=== PATIENT | female | born 1945 | race Caucasian/White ===

== ENCOUNTER 2019-08-07 07:24 | Inpatient (IN) | payer MEDICARE, BC ==
[~2019-08-07 07:24] MED LIST: Povidone-Iodine 10% Soln 118.25 ML Bottle ONE
[2019-08-07] MEDS ORDERED: Lactated Ringers 1,000 ML IV SCH (08:00)
[2019-08-07] MEDS ORDERED: Midazolam 1 MG/ML 2 ML SDV ONE ×2 (08:06→12:28)
[2019-08-07] MEDS ORDERED: fentaNYL 100 MCG/2 ML SDV ONE ×2 (08:06→13:44)
[2019-08-07] MEDS ORDERED: Propofol 200 MG/20 ML SDV ONE ×4 (08:06→12:20)
[2019-08-07] MEDS: Nozin Nasal Sanitizer NASBOTH SCH ×2 (08:24→21:18)
[2019-08-07] MEDS ORDERED: ceFAZolin 2 GM in Premix Bag 1 BAG IV ONE (09:00)
[2019-08-07] MEDS ORDERED: ePHEDrine 50 MG/ML SDV ONE (10:14)
[2019-08-07] MEDS ORDERED: Phenylephrine 1% 10 MG/ML SDV ONE ×2 (10:24→13:39)
[2019-08-07] MEDS ORDERED: Sodium Chloride 0.9% 10 ML ONE (10:24)
[2019-08-07] MEDS ORDERED: Lactated Ringers 1,000 ML ONE ×2 (10:51→12:33)
--- NOTE | 2019-08-07 12:28 | CR ---
Hip Min 1V Rt: 08/07/2019 11:24 AM INDICATION: POST OP RIGHT TOTAL HIP COMPARISON: Radiograph performed 07/04/2019. FINDINGS/IMPRESSION: Single portable operative spot radiograph demonstrates right total hip arthroplasty in progress. The acetabular component has been placed. Femoral component has not yet been fitted.
[2019-08-07] MEDS ORDERED: Morphine 2 MG/ML Syringe IVPUSH PRN (13:07)
[2019-08-07] MEDS ORDERED: Magnesium Hydroxide 400 MG/5 ML Susp 30 ML Cup PO PRN (13:07)
[2019-08-07] MEDS ORDERED: Acetaminophen/oxyCODONE 325-5 MG Tab PO PRN (13:07)
[2019-08-07] MEDS ORDERED: Ondansetron 4 MG/2 ML SDV IVPUSH PRN (13:17)
[2019-08-07] MEDS ORDERED: Sodium Chloride 0.9% 250 ML ONE (13:39)
[2019-08-07] MEDS: Norepinephrine 4 MG in Dextrose 5% in Water 246 ML IV SCH ×2 (13:54)
[2019-08-07] MEDS: Sodium Chloride 0.9% 1,000 ML IV SCH (15:43)
--- NOTE | 2019-08-07 15:47 | PCM.CONS ---
H&P History of Present Illness - General Date of Service: 08/07/19 Admit Problem/Dx: Admission Diagnosis/Problem Admission Diagnosis/Problem Osteoarthritis of both hips Source of Information: Patient, Provider History Limitations: Reports: No Limitations - History of Present Illness Initial Comments - Free Text/Narative: CC: my hip hurts HPI: I was asked to see Claudia by Dr Lares today after a right MARBELLA complicated by hypotension. Claudia is a healthy female who suffered an acetabular fracture during surgical repair of her severe right hip OA. As a result she lost a significant amount of blood and has been hypotensive requiring vasopressor support. She is currently receiving 2 units of blood via transfusion and is on 7 g of norepinephrine. Mean arterial pressure has finally reached 65 after titration of the vasopressor medication. She is currently reporting severe sharp pain in her right hip following surgery. We have been unable to use pain medications because of the hypotension until now. She does not report any shortness of breath. No complaints of chest pain. No history of cardiac difficulty. Postoperative hemoglobin was 9. Right Hip Pain Score (Numeric/FACES): 4 - Related Data Allergies/Adverse Reactions: Allergies Allergy/AdvReac Type Severity Reaction Status Date / Time Penicillins Allergy Rash Verified 08/07/19 07:57 Home Medications: Home Meds Cyanocobalamin (Vitamin B-12) [Vitamin B-12] 1,000 mcg SL DAILY 07/04/19 [ History] Magnesium 250 mg PO BEDTIME 07/04/19 [History] Potassium Gluconate [Potassium] 600 mg PO DAILY PRN 07/04/19 [History] Cholecalciferol (Vitamin D3) [Vitamin D3] 25 mcg PO DAILY 08/07/19 [History] Past Medical History Gastrointestinal History: Reports: Diverticulosis, GERD Genitourinary History: Reports: UTI, Recurrent [employer] HEL[employer] History: Reports: Fibroids Musculoskeletal History: Reports: Arthritis, Back Pain, Chronic, Other (See Below) Other Musculoskeletal History: bilat hip pain Hematologic History: Reports: Anemia - Infectious Disease History Infectious Disease History: Reports: Chicken Pox - Past Surgical History HEENT Surgical History: Reports: Cataract Surgery, Other (See Below) Other HEENT Surgeries/Procedures: "lump removed from eye" GI Surgical History: Reports: Colonoscopy Female Surgical History: Reports: Hysterectomy Social & Family History - Family History Cardiac: Denies: CAD - Tobacco Use Smoking Status *Q: Former Smoker Used Tobacco, but Quit: Yes Month/Year Tobacco Last Used: 20 yrs ago - Caffeine Use Caffeine Use: Reports: Coffee - Alcohol Use Days Per Week of Alcohol Use: 5 Number of Drinks Per Day: 1 Total Drinks Per Week: 5 - Recreational Drug Use Recreational Drug Use: No H&P Review of Systems - Review of Systems: Review Of Systems: See Below Free Text/Narrative: A complete 12 point review of systems was obtained. Pertinent positives and negatives are noted in the history of present illness. All other systems were reviewed and were negative except as noted. Exam - Exam Exam: See Below - Vital Signs Vital Signs: Last Vital Signs Temp 35.4 C 08/07/19 15:38 Pulse 72 08/07/19 15:38 Resp 6 L 08/07/19 15:38 BP 87/57 L 08/07/19 15:38 Pulse Ox 100 08/07/19 15:38 Weight: 67.313 kg - Exam Quality Assessment: No: Supplemental Oxygen General: Alert, Oriented, Cooperative, Moderate Distress HEENT: No: Mucosa Moist & [place] (dry), Scleral Icterus Neck: Supple, Trachea Midline. No: Lymphadenopathy Lungs: Clear to Auscultation, Normal Respiratory Effort Cardiovascular: Regular Rate, Regular Rhythm GI/Abdominal Exam: Normal Bowel Sounds, Soft, Non-Tender, No Distention Extremities: No Pedal Edema, Other (right hip surgical dressing dry and intact ) . No: Increased Warmth Skin: Warm, Dry Neuro Extensive - Mental Status: Alert, Oriented x3, Nl Response to Commands Neuro Extensive - Motor, Sensory, Reflexes: No: Dysarthria, Abnormal Motor, Tremor Psychiatric: Alert, Normal Affect - Patient Data Lab Results Last 24 hrs: Laboratory Results - last 24 hr 08/07/19 08/07/19 Range/Units 07:52 13:07 WBC 12.1 H (4.5-11.0) K/uL RBC 3.15 L (3.30-5.50) M/uL Hgb 9.4 L (12.0-15.0) g/dL Hct 28.6 L (36.0-48.0) % MCV 91 (80-98) fL MCH 30 (27-31) pg MCHC 33 (32-36) % Plt Count 209 (150-400) K/uL Blood Type O POSITIVE Gel Antibody Screen Negative Crossmatch See Detail Result Diagrams: 08/07/19 13:07 Imaging Impressions Last 24 hrs: Pelvis x-ray - this image was personally reviewed - right MARBELLA components are in place and appear to be in good alignment Consult PN Assessment/Plan POD#: 0 Procedures: Procedures X-RAY EXAM HIPS BI 2 VIEWS (07/04/19) X-RAY EXAM OF PELVIS (07/04/19) (1) Anemia due to blood loss, acute SNOMED Code(s): 138953629 Code(s): D62 - ACUTE POSTHEMORRHAGIC ANEMIA Current Visit: Yes Problem List Initiated/Reviewed/Updated: Yes My Orders Last 24 Hours: My Active Orders 08/07/19 21:00 HGB [HEMOGLOBIN] [HEME] Timed Plan: ASSESSMENT AND PLAN - Severe right hip osteoarthritis - she is now status post right total hip arthroplasty. Postop course has been complicated by hypotension and anemia due to blood loss. She is requiring vasopressor support at this time but blood pressures have been improving. She is currently receiving 2 units of blood via transfusion as well as IV fluids. -Complete current blood transfusion -Repeat hemoglobin in a few hours and in the morning -Type and cross for 4 additional units in case they are needed -Pain control -Additional postoperative care per the orthopedic team Patient has been admitted to the intensive care unit for management of her severe hypotension Darrel Rao M.D. Requesting Provider: Dr Lares Date Consult Requested: 08/07/19 Reason for Consult: hypotension Patient History Reviewed: Yes Admission H&P Reviewed: Yes Notified Requestor: No Time Spent (in minutes): 60
--- NOTE | 2019-08-07 16:19 | CR ---
Pelvis 1V or 2V: 08/07/2019 1:28 PM INDICATION: post op right total hip COMPARISON: 07/04/2019. FINDINGS/IMPRESSION: Changes of right total hip arthroplasty are present without apparent hardware complication or periprosthetic fracture. Expected postsurgical changes are present in the soft tissues, with subcutaneous emphysema noted. Moderate osteoarthritis of the left hip, SI joints, and pubic symphysis.
[2019-08-07] MEDS: Acetaminophen/HYDROcodone 325-5 MG Tab PO PRN (16:57)
[2019-08-07] MEDS ORDERED: Magnesium Sulfate/Water 2 GM in Premix Bag 1 BAG IV ONE (18:39)
[2019-08-07] MEDS: Magnesium Oxide 400 MG Tab PO SCH (21:20)
[2019-08-08] MEDS: Norepinephrine 4 MG in Dextrose 5% in Water 246 ML IV SCH ×2 (03:39)
--- NOTE | 2019-08-08 04:33 | OR ---
DATE OF PROCEDURE: 08/07/2019 SURGEON: Juvencio Lares MD PREOPERATIVE DIAGNOSIS: End-stage osteoarthritis, right hip. POSTOPERATIVE DIAGNOSES: 1. End-stage osteoarthritis, right hip. 2. Fracture medial wall acetabulum. PROCEDURE: Right total hip arthroplasty. ANESTHESIA: Spinal with sedation. INDICATIONS: Ms. Hopkins is a 74-year-old female with history of progressive pain in her right hip for the past several years have been getting progressively more limiting with activities of daily living. Range of motion is extremely limited with minimal internal and external rotation. She now presents for right total hip arthroplasty. Risks, benefits, potential complications of the procedure were discussed. PROCEDURE IN DETAIL: After adequate anesthesia was obtained, patient was placed in the lateral decubitus position and secured with the hip positioner. The right hip and leg were then prepped and draped in a sterile fashion. A longitudinal incision was made over the lateral aspect of the hip and carried down through the subcutaneous tissues. Hemostasis was obtained with electrocautery. Tensor fascia and IT band were split over the greater trochanter and a Charnley retractor was placed. A minimal internal external rotation was present. The short external rotators were taken off the greater trochanter posteriorly and the capsule was then divided in a T-fashion. This allowed rotation of the hip and the femoral head was then dislocated from the acetabulum. This showed significant end-stage osteoarthritis with deformity of the head. Retractors were placed about the anterior and inferior aspect of the acetabulum. Soft tissues were cleared from the central portion of the acetabulum and the labrum was excised. A portion of the labrum was calcified. A stab wound was then sequentially reamed to good subchondral bone. A Janna Continuum trabecular metal cup was press-fit into place. This initially had good fixation. However , when the liner was tapped into position, the cup was noted to have lost position. The cup was removed and it was discovered that the medial wall of the acetabulum had fractured allowing the cup to displace into a protrusio position. The acetabulum was then reamed up slightly to a good rim contact. Larger cup was then selected. Reamings from the acetabulum were placed in the central portion against the medial wall and the cup was then again press-fit into place. This again showed good initial purchase. Two screws were placed into the acetabulum. Unfortunately, when the polyethylene liner was tapped into position, the cup was again noted to have lost fixation. This cup was removed as well. The graft that had been placed was removed and preserved. Acetabulum was then reamed up to a 60 mm and a 62 mm cup was utilized. This was tapped into position after placing a bone graft again against the medial wall. Two acetabular screws were placed with very good purchase. Acetabular liner was then tapped in and there was no displacement of the cup with this. Attention was then returned to the femur. Due to concern about the density of the calcar and metaphyseal bone a stem was selected that allowed for distal fixation. The canal was reamed with a hand awl. This was then reamed up to a 15 mm diameter reamer. A trial Baeza 15 mm stem was placed. This subsided below the level of the tip of the trochanter for femoral head rotation and it was removed. A 16 mm body was then utilized, which provided much better fixation and allowed placement of the center rotation at the level of the greater trochanter. This was trialed and found to have restored limb length. The trial was removed. The final Baeza 16 mm stem was then press-fit into position, had excellent purchase and rotational stability. The femoral neck lengths were then trialed once again with a plus 3.5 mm neck length on a 36 mm diameter head was selected. The trial was removed. The trunnion was cleaned and the final femoral head was tapped into position. The hip was reduced a final time. Care was taken with each of the reductions to be sure that the cup maintained position and fixation. On final trial, the limb length was restored, showed stability in flexion to 90 degrees, abduction to 20 degrees, and internal rotation at least to 45 degrees. The hip was then irrigated. Pulse lavage irrigation was followed by irrigation with a dilute Betadine solution, which was left in place for 2 minutes. This was then irrigated once again. The short external rotators were reattached to the greater trochanter with #2 Ethibond. Tensor fascia was closed with #2 Ethibond in a running locking fashion. Skin was closed with 2-0 Vicryl and a running 3-0 Monocryl. Steri-Strips were applied. Sterile dressing was then placed. The patient tolerated the procedure well. Due to the medial wall fracture, there was significant blood loss estimated at 1500 mL. Hemoglobin and hematocrit will be checked postoperatively and postoperative x-ray will also be obtained in the recovery room. Juvencio Lares MD /[id number] MTDD
[2019-08-08] MEDS: Sodium Chloride 0.9% 1,000 ML IV SCH (05:54)
[2019-08-08] MEDS: Cyanocobalamin (Vitamin B12) 1,000 MCG Tab SL SCH (08:13)
[2019-08-08] MEDS: Nozin Nasal Sanitizer NASBOTH SCH ×2 (08:14→20:54)
[2019-08-08] MEDS: Enoxaparin 30 MG/0.3 ML Syringe SUBCUT SCH (08:14)
[2019-08-08] MEDS: Docusate Sodium 100 MG Cap PO PRN ×2 (08:14→20:54)
[2019-08-08] MEDS: Cholecalciferol (Vitamin D3) 25 MCG Tab PO SCH (08:14)
[2019-08-08] MEDS: Acetaminophen/HYDROcodone 325-5 MG Tab PO PRN ×2 (08:28→13:24)
--- NOTE | 2019-08-08 09:23 | PCM.CONSN ---
- General Info Date of Service: 08/08/19 Subjective Update: No acute events overnight. Norepi down to 2 mcg this am. Minimal hip pain at rest, moderate to severe pain with movement. No shortness of breath. Doing well with IS. No abdominal pain or nausea. Hgb has been stable. Functional Status: Reports: Pain Controlled, Tolerating Diet - Review of Systems General: Denies: Fever Musculoskeletal: Reports: Leg Pain - Patient Data Vitals - Most Recent: Last Vital Signs Temp 36.8 C 08/08/19 07:54 Pulse 87 08/08/19 08:54 Resp 15 08/08/19 08:54 BP 100/49 L 08/08/19 08:54 Pulse Ox 97 08/08/19 08:54 Weight - Most Recent: 74.2 kg I&O - Last 24 Hours: Intake & Output 08/07/19 08/08/19 08/08/19 22:59 06:59 14:59 Intake Total 1298 1636 240 Output Total 75 270 185 Balance 1223 1366 55 Lab Results Last 24 Hours: Laboratory Results - last 24 hr 08/07/19 08/07/19 08/07/19 Range/Units 07:52 13:07 18:13 WBC 12.1 H (4.5-11.0) K/uL RBC 3.15 L (3.30-5.50) M/uL Hgb 9.4 L (12.0-15.0) g/dL Hct 28.6 L (36.0-48.0) % MCV 91 (80-98) fL MCH 30 (27-31) pg MCHC 33 (32-36) % Plt Count 209 (150-400) K/uL Neut % (Auto) (36-66) % Lymph % (Auto) (24-44) % [place] % (Auto) (2-6) % Eos % (Auto) (2-4) % Baso % (Auto) (0-1) % Sodium 139 L (140-148) mmol/L Potassium 4.1 (3.6-5.2) mmol/L Chloride 105 (100-108) mmol/L Carbon Dioxide 26 (21-32) mmol/L Anion Gap 12.1 (5.0-14.0) mmol/L BUN 18 (7-18) mg/dL Creatinine 0.7 (0.6-1.0) mg/dL Est Cr Clr Drug Dosing TNP Estimated GFR (MDRD) > 60 (>60) Glucose 172 H (74-106) mg/dL Calcium 8.1 L (8.5-10.1) mg/dL Magnesium 1.7 L (1.8-2.4) mg/dL Blood Type O POSITIVE Gel Antibody Screen Negative Crossmatch See Detail 08/07/19 08/08/19 08/08/19 Range/Units 21:00 04:05 04:05 WBC 6.8 (4.5-11.0) K/uL RBC 3.34 (3.30-5.50) M/uL Hgb 11.2 L 10.0 L (12.0-15.0) g/dL Hct 29.6 L (36.0-48.0) % MCV 89 (80-98) fL MCH 30 (27-31) pg MCHC 34 (32-36) % Plt Count 164 (150-400) K/uL Neut % (Auto) 79 H (36-66) % Lymph % (Auto) 9 L (24-44) % [place] % (Auto) 12 H (2-6) % Eos % (Auto) 0 L (2-4) % Baso % (Auto) 0 (0-1) % Sodium 138 L (140-148) mmol/L Potassium 4.8 (3.6-5.2) mmol/L Chloride 105 (100-108) mmol/L Carbon Dioxide 26 (21-32) mmol/L Anion Gap 11.8 (5.0-14.0) mmol/L BUN 17 (7-18) mg/dL Creatinine 0.6 (0.6-1.0) mg/dL Est Cr Clr Drug Dosing TNP Estimated GFR (MDRD) > 60 (>60) Glucose 151 H (74-106) mg/dL Calcium 7.6 L (8.5-10.1) mg/dL Magnesium (1.8-2.4) mg/dL Blood Type Gel Antibody Screen Crossmatch Med Orders - Current: Current Medications Hydrocodone Bitart/Acetaminophen ([place] 325-5 Mg) 1 tab PO Q3H PRN PRN Reason: Pain Last Admin: 08/08/19 08:28 Dose: 1 tab Bandage/Support Products ( Nasal Car Runner) 1 applic NASBOTH BID ON LICENSE OF [facility] Last Admin: 08/08/19 08:14 Dose: 1 applic Cholecalciferol (Vitamin D3) 25 mcg PO DAILY ON LICENSE OF [facility] Last Admin: 08/08/19 08:14 Dose: 25 mcg Cyanocobalamin (Vitamin B12) 1,000 mcg SL DAILY ON LICENSE OF [facility] Last Admin: 08/08/19 08:13 Dose: 1,000 mcg Docusate Sodium (Colace) 100 mg PO BID PRN PRN Reason: Constipation Last Admin: 08/08/19 08:14 Dose: 100 mg Enoxaparin Sodium (Lovenox) 30 mg SUBCUT DAILY ON LICENSE OF [facility] Last Admin: 08/08/19 08:14 Dose: 30 mg Norepinephrine Bitartrate 4 mg (/ Dextrose/Water) 250 mls @ 7.5 mls/hr IV TITRATE ON LICENSE OF [facility]; Protocol Last Titration: 08/08/19 08:03 Dose: 2 mcg/min, 7.5 mls/hr Magnesium Hydroxide (Milk Of Magnesia) 30 ml PO BID PRN PRN Reason: Constipation Magnesium Oxide (Magnesium Oxide) 400 mg PO BEDTIME ON LICENSE OF [facility] Last Admin: 08/07/19 21:20 Dose: 400 mg Morphine Sulfate (Morphine) 2 mg IVPUSH Q1H PRN PRN Reason: Breakthrough Pain Last Admin: 08/07/19 15:37 Dose: 2 mg Ondansetron HCl (Zofran) 4 mg IVPUSH Q6H PRN PRN Reason: Nausea/Vomiting Oxycodone/Acetaminophen (Percocet 325-5 Mg) 2 tab PO Q4H PRN PRN Reason: Pain (severe 7-10) Discontinued Medications Ephedrine Sulfate (Ephedrine Sulfate) Confirm Administered Dose 50 mg .ROUTE .STK-MED ONE Stop: 08/07/19 10:15 Fentanyl (Sublimaze) Confirm Administered Dose 100 mcg .ROUTE .STK-MED ONE Stop: 08/07/19 08:07 Fentanyl (Sublimaze) Confirm Administered Dose 100 mcg .ROUTE .STK-MED ONE Stop: 08/07/19 13:45 Lactated Ringer's (Ringers, Lactated) 1,000 mls @ 75 mls/hr IV ASDIRECTED ON LICENSE OF [facility] Last Admin: 08/07/19 08:30 Dose: 75 mls/hr Cefazolin Sodium/Dextrose 2 gm (/ Premix) 50 mls @ 100 mls/hr IV ONETIME ONE Stop: 08/07/19 09:29 Last Admin: 08/07/19 09:49 Dose: 100 mls/hr Sodium Chloride (Normal Saline) Confirm Administered Dose 10 mls @ as directed .ROUTE .ST-MED ONE Stop: 08/07/19 10:25 Lactated Ringer's (Ringers, Lactated) Confirm Administered Dose 1,000 mls @ as directed .ROUTE .ST-MED ONE Stop: 08/07/19 10:52 Lactated Ringer's (Ringers, Lactated) Confirm Administered Dose 1,000 mls @ as directed .ROUTE .ST-MED ONE Stop: 08/07/19 12:34 Sodium Chloride (Normal Saline) 1,000 mls @ 125 mls/hr IV ASDIRECTED ON LICENSE OF [facility] Last Admin: 08/08/19 05:54 Dose: 125 mls/hr Vancomycin HCl 1 gm/ Sodium (Chloride) 250 mls @ 250 mls/hr IV Q12H OLYA Stop: 08/08/19 04:59 Last Admin: 08/08/19 03:41 Dose: 250 mls/hr Sodium Chloride (Normal Saline) Confirm Administered Dose 250 mls @ as directed .ROUTE .ST-MED ONE Stop: 08/07/19 13:40 Magnesium Sulfate 2 gm/ Premix 50 mls @ 12.5 mls/hr IV ONETIME ONE Stop: 08/07/19 22:38 Last Admin: 08/07/19 19:17 Dose: 12.5 mls/hr Midazolam HCl (Versed 1 Mg/Ml) Confirm Administered Dose 2 mg .ROUTE .ST-MED ONE Stop: 08/07/19 08:07 Midazolam HCl (Versed 1 Mg/Ml) Confirm Administered Dose 2 mg .ROUTE .ST-MED ONE Stop: 08/07/19 12:29 Phenylephrine HCl (Sam-Synephrine) Confirm Administered Dose 10 mg .ROUTE .STK- MED ONE Stop: 08/07/19 10:25 Phenylephrine HCl (Sam-Synephrine) Confirm Administered Dose 10 mg .ROUTE .STK- MED ONE Stop: 08/07/19 13:40 Povidone Iodine (Betadine 10% Soln) Confirm Administered Dose 1 ml .ROUTE .STK- MED ONE Stop: 08/07/19 06:41 Propofol (Diprivan 20 Ml) Confirm Administered Dose 200 mg .ROUTE .STK-MED ONE Stop: 08/07/19 08:07 Propofol (Diprivan 20 Ml) Confirm Administered Dose 200 mg .ROUTE .STK-MED ONE Stop: 08/07/19 10:45 Propofol (Diprivan 20 Ml) Confirm Administered Dose 200 mg .ROUTE .STK-MED ONE Stop: 08/07/19 11:41 Propofol (Diprivan 20 Ml) Confirm Administered Dose 200 mg .ROUTE .STK-MED ONE Stop: 08/07/19 12:21 - Exam Quality Assessment: No: Supplemental Oxygen General: Alert, Oriented, Cooperative, No Acute Distress Lungs: Normal Respiratory Effort Cardiovascular: Regular Rate, Regular Rhythm GI/Abdominal Exam: Soft, No Distention Extremities: No Pedal Edema Psy/Mental Status: Alert, Normal Affect Consult PN Assessment/Plan POD#: 1 Procedures: Procedures X-RAY EXAM HIPS BI 2 VIEWS (07/04/19) X-RAY EXAM OF PELVIS (07/04/19) (1) Anemia due to blood loss, acute SNOMED Code(s): 859494094 Code(s): D62 - ACUTE POSTHEMORRHAGIC ANEMIA Current Visit: Yes Problem List Initiated/Reviewed/Updated: Yes My Orders Last 24 Hours: My Active Orders 08/08/19 09:30 Sodium Chloride 0.9% [Normal Saline] 1,000 ml IV ASDIRECTED 08/09/19 05:00 BASIC METABOLIC PANEL,BMP [CHEM] Timed CBC W/O DIFF,HEMOGRAM [HEME] Timed (1) Plan: ASSESSMENT AND PLAN - Severe right hip osteoarthritis - she is now status post right total hip arthroplasty. Postop course has been complicated by hypotension and anemia due to blood loss. She is requiring vasopressor support but it is minimal at this time. Hgb stable since surgery. Pain controlled. -cont norepi, wean as able -Repeat hemoglobin in the morning -Type and cross for 4 additional units in case they are needed -Pain control -Additional postoperative care per the orthopedic team Anemia due to blood loss - more stable today. Hgb stable. No evidence for ongoing bleeding. -hgb in the am Darrel Rao M.D.
[2019-08-08] MEDS ORDERED: Sodium Chloride 0.9% 1,000 ML IV SCH (09:30)
[2019-08-08] MEDS ORDERED: Magnesium Sulfate/Water 2 GM in Premix Bag 1 BAG IV ONE (17:00)
[2019-08-08] MEDS: Magnesium Oxide 400 MG Tab PO SCH (20:54)
[2019-08-09] MEDS: Nozin Nasal Sanitizer NASBOTH SCH ×2 (08:31→20:21)
[2019-08-09] MEDS: Cholecalciferol (Vitamin D3) 25 MCG Tab PO SCH (08:31)
[2019-08-09] MEDS: Cyanocobalamin (Vitamin B12) 1,000 MCG Tab SL SCH (08:31)
[2019-08-09] MEDS ORDERED: traMADol 50 MG Tab PO PRN (08:42)
--- NOTE | 2019-08-09 08:43 | PCM.CONSN ---
- General Info Date of Service: 08/09/19 Subjective Update: There were no acute events overnight. She did require norepinephrine for a short while yesterday but is off again this morning. Blood pressure is back to baseline. She has not been out of bed yet to see if she drops with activity. She has not had any fevers. She does not complain of shortness of breath. She has minimal if any pain in the hip. Hemoglobin is down to 8.1 today. Functional Status: Reports: Pain Controlled, Tolerating Diet - Review of Systems General: Denies: Fever - Patient Data Vitals - Most Recent: Last Vital Signs Temp 37.6 C 08/09/19 06:00 Pulse 87 08/09/19 08:00 Resp 16 08/09/19 08:00 BP 99/56 L 08/09/19 08:00 Pulse Ox 97 08/09/19 08:00 Weight - Most Recent: 74.2 kg I&O - Last 24 Hours: Intake & Output 08/08/19 08/09/19 08/09/19 22:59 06:59 14:59 Intake Total 1277 940 Output Total 100 500 15 Balance 1177 440 -15 Lab Results Last 24 Hours: Laboratory Results - last 24 hr 08/09/19 08/09/19 Range/Units 04:15 04:15 WBC 7.5 (4.5-11.0) K/uL RBC 2.74 L (3.30-5.50) M/uL Hgb 8.1 L (12.0-15.0) g/dL Hct 24.6 L (36.0-48.0) % MCV 90 (80-98) fL MCH 30 (27-31) pg MCHC 33 (32-36) % Plt Count 119 L (150-400) K/uL Sodium 139 L (140-148) mmol/L Potassium 4.1 (3.6-5.2) mmol/L Chloride 106 (100-108) mmol/L Carbon Dioxide 27 (21-32) mmol/L Anion Gap 10.1 (5.0-14.0) mmol/L BUN 12 (7-18) mg/dL Creatinine 0.6 (0.6-1.0) mg/dL Est Cr Clr Drug Dosing 77.41 mL/min Estimated GFR (MDRD) > 60 (>60) Glucose 114 H (74-106) mg/dL Calcium 7.7 L (8.5-10.1) mg/dL Med Orders - Current: Current Medications Hydrocodone Bitart/Acetaminophen ([place] 325-5 Mg) 1 tab PO Q3H PRN PRN Reason: Pain (moderate 4-6) Last Admin: 08/08/19 13:24 Dose: 1 tab Bandage/Support Products ( Nasal Displayer) 1 applic NASBOTH BID [facility] Last Admin: 08/09/19 08:31 Dose: 1 applic Cholecalciferol (Vitamin D3) 25 mcg PO DAILY [facility] Last Admin: 08/09/19 08:31 Dose: 25 mcg Cyanocobalamin (Vitamin B12) 1,000 mcg SL DAILY [facility] Last Admin: 08/09/19 08:31 Dose: 1,000 mcg Docusate Sodium (Colace) 100 mg PO BID PRN PRN Reason: Constipation Last Admin: 08/08/19 20:54 Dose: 100 mg Enoxaparin Sodium (Lovenox) 30 mg SUBCUT DAILY [facility] Last Admin: 08/08/19 08:14 Dose: 30 mg Norepinephrine Bitartrate 4 mg (/ Dextrose/Water) 250 mls @ 7.5 mls/hr IV TITRATE [facility]; Protocol Last Titration: 08/08/19 11:18 Dose: 0 mcg/min, 0 mls/hr Sodium Chloride (Normal Saline) 1,000 mls @ 50 mls/hr IV ASDIRECTED [facility] Magnesium Hydroxide (Milk Of Magnesia) 30 ml PO BID PRN PRN Reason: Constipation Magnesium Oxide (Magnesium Oxide) 400 mg PO BEDTIME [facility] Last Admin: 08/08/19 20:54 Dose: 400 mg Morphine Sulfate (Morphine) 2 mg IVPUSH Q1H PRN PRN Reason: Breakthrough Pain Last Admin: 08/07/19 15:37 Dose: 2 mg Ondansetron HCl (Zofran) 4 mg IVPUSH Q6H PRN PRN Reason: Nausea/Vomiting Tramadol HCl (Ultram) 50 mg PO Q4H PRN PRN Reason: Pain (mild 1-3) Discontinued Medications Ephedrine Sulfate (Ephedrine Sulfate) Confirm Administered Dose 50 mg .ROUTE .STK-MED ONE Stop: 08/07/19 10:15 Fentanyl (Sublimaze) Confirm Administered Dose 100 mcg .ROUTE .STK-MED ONE Stop: 08/07/19 08:07 Fentanyl (Sublimaze) Confirm Administered Dose 100 mcg .ROUTE .K-MED ONE Stop: 08/07/19 13:45 Lactated Ringer's (Ringers, Lactated) 1,000 mls @ 75 mls/hr IV ASDIRECTED [facility] Last Admin: 08/07/19 08:30 Dose: 75 mls/hr Cefazolin Sodium/Dextrose 2 gm (/ Premix) 50 mls @ 100 mls/hr IV ONETIME ONE Stop: 08/07/19 09:29 Last Admin: 08/07/19 09:49 Dose: 100 mls/hr Sodium Chloride (Normal Saline) Confirm Administered Dose 10 mls @ as directed .ROUTE .[facility]-MED ONE Stop: 08/07/19 10:25 Lactated Ringer's (Ringers, Lactated) Confirm Administered Dose 1,000 mls @ as directed .ROUTE .[facility]-MED ONE Stop: 08/07/19 10:52 Lactated Ringer's (Ringers, Lactated) Confirm Administered Dose 1,000 mls @ as directed .ROUTE .[facility]-MED ONE Stop: 08/07/19 12:34 Sodium Chloride (Normal Saline) 1,000 mls @ 125 mls/hr IV ASDIRECTED [facility] Last Admin: 08/08/19 05:54 Dose: 125 mls/hr Vancomycin HCl 1 gm/ Sodium (Chloride) 250 mls @ 250 mls/hr IV Q12H [facility] Stop: 08/08/19 04:59 Last Admin: 08/08/19 03:41 Dose: 250 mls/hr Sodium Chloride (Normal Saline) Confirm Administered Dose 250 mls @ as directed .ROUTE .[facility]-MED ONE Stop: 08/07/19 13:40 Magnesium Sulfate 2 gm/ Premix 50 mls @ 12.5 mls/hr IV ONETIME ONE Stop: 08/07/19 22:38 Last Admin: 08/07/19 19:17 Dose: 12.5 mls/hr Magnesium Sulfate 2 gm/ Premix 50 mls @ 12.5 mls/hr IV ONETIME ONE Stop: 08/08/19 20:59 Last Admin: 08/08/19 17:02 Dose: 12.5 mls/hr Midazolam HCl (Versed 1 Mg/Ml) Confirm Administered Dose 2 mg .ROUTE .STK-MED ONE Stop: 08/07/19 08:07 Midazolam HCl (Versed 1 Mg/Ml) Confirm Administered Dose 2 mg .ROUTE .STK-MED ONE Stop: 08/07/19 12:29 Oxycodone/Acetaminophen (Percocet 325-5 Mg) 2 tab PO Q4H PRN PRN Reason: Pain (severe 7-10) Phenylephrine HCl (Sam-Synephrine) Confirm Administered Dose 10 mg .ROUTE .STK- MED ONE Stop: 08/07/19 10:25 Phenylephrine HCl (Sam-Synephrine) Confirm Administered Dose 10 mg .ROUTE .STK- MED ONE Stop: 08/07/19 13:40 Povidone Iodine (Betadine 10% Soln) Confirm Administered Dose 1 ml .ROUTE .STK- MED ONE Stop: 08/07/19 06:41 Propofol (Diprivan 20 Ml) Confirm Administered Dose 200 mg .ROUTE .STK-MED ONE Stop: 08/07/19 08:07 Propofol (Diprivan 20 Ml) Confirm Administered Dose 200 mg .ROUTE .STK-MED ONE Stop: 08/07/19 10:45 Propofol (Diprivan 20 Ml) Confirm Administered Dose 200 mg .ROUTE .STK-MED ONE Stop: 08/07/19 11:41 Propofol (Diprivan 20 Ml) Confirm Administered Dose 200 mg .ROUTE .STK-MED ONE Stop: 08/07/19 12:21 - Exam Quality Assessment: No: Supplemental Oxygen General: Alert, Oriented, Cooperative, No Acute Distress Lungs: Clear to Auscultation, Normal Respiratory Effort Cardiovascular: Regular Rate, Regular Rhythm GI/Abdominal Exam: Normal Bowel Sounds, Soft, No Distention Extremities: No Pedal Edema. No: Increased Warmth Psy/Mental Status: Alert, Normal Affect Consult PN Assessment/Plan POD#: 2 Procedures: Procedures X-RAY EXAM HIPS BI 2 VIEWS (07/04/19) X-RAY EXAM OF PELVIS (07/04/19) (1) Anemia due to blood loss, acute SNOMED Code(s): 936929474 Code(s): D62 - ACUTE POSTHEMORRHAGIC ANEMIA Current Visit: Yes Problem List Initiated/Reviewed/Updated: Yes My Orders Last 24 Hours: My Active Orders 08/08/19 09:30 Sodium Chloride 0.9% [Normal Saline] 1,000 ml IV ASDIRECTED 10/09/19 08:42 traMADol [Ultram] 50 mg PO Q4H PRN 08/10/19 05:00 CBC W/O DIFF,HEMOGRAM [HEME] Timed (1) Plan: ASSESSMENT AND PLAN - Severe right hip osteoarthritis - she is now status post right total hip arthroplasty. Postop course has been complicated by hypotension and anemia due to blood loss. She is off vasopressors again this morning and blood pressure seems to be back to baseline but she has not been out of bed yet. -cont norepi, wean as able -Repeat hemoglobin in the morning -Consider dense fusion if she remains hypotensive/symptomatic when trying to get out of bed -Pain control -Additional postoperative care per the orthopedic team Anemia due to blood loss - more stable today. Hgb down to 8.1 today. Enoxaparin is on hold. -hgb in the am Darrel Rao M.D.
[2019-08-09] MEDS: Magnesium Oxide 400 MG Tab PO SCH (20:24)
[2019-08-09] MEDS: Docusate Sodium 100 MG Cap PO PRN (20:34)
[2019-08-10] MEDS: Nozin Nasal Sanitizer NASBOTH SCH ×2 (08:39→20:04)
[2019-08-10] MEDS: Enoxaparin 30 MG/0.3 ML Syringe SUBCUT SCH (08:42)
[2019-08-10] MEDS: Cyanocobalamin (Vitamin B12) 1,000 MCG Tab SL SCH (08:43)
[2019-08-10] MEDS: Cholecalciferol (Vitamin D3) 25 MCG Tab PO SCH (08:44)
--- NOTE | 2019-08-10 13:45 | PCM.CONSN ---
- General Info Date of Service: 08/10/19 Subjective Update: No acute events overnight. Pain well-controlled. No fevers. Blood pressure has been stable with no drops. Hemoglobin slightly lower today but no evidence for ongoing bleeding. Patient feels well. Functional Status: Reports: Pain Controlled, Tolerating Diet, Ambulating - Patient Data Vitals - Most Recent: Last Vital Signs Temp 37.2 C 08/10/19 12:00 Pulse 91 08/10/19 12:00 Resp 16 08/10/19 12:00 BP 129/60 08/10/19 12:00 Pulse Ox 97 08/10/19 12:00 Weight - Most Recent: 74.2 kg I&O - Last 24 Hours: Intake & Output 08/09/19 08/10/19 08/10/19 22:59 06:59 14:59 Intake Total 240 587 Output Total 315 450 Balance -75 -450 587 Lab Results Last 24 Hours: Laboratory Results - last 24 hr 08/10/19 Range/Units 04:53 WBC 7.1 (4.5-11.0) K/uL RBC 2.57 L (3.30-5.50) M/uL Hgb 7.6 L (12.0-15.0) g/dL Hct 23.6 L (36.0-48.0) % MCV 92 (80-98) fL MCH 30 (27-31) pg MCHC 32 (32-36) % Plt Count 121 L (150-400) K/uL Med Orders - Current: Current Medications Hydrocodone Bitart/Acetaminophen ([place] 325-5 Mg) 1 tab PO Q3H PRN PRN Reason: Pain (moderate 4-6) Last Admin: 08/08/19 13:24 Dose: 1 tab Bandage/Support Products ( Nasal Electrical And Instrument Engineer) 1 applic NASBOTH BID [facility] Last Admin: 08/10/19 08:39 Dose: 1 applic Cholecalciferol (Vitamin D3) 25 mcg PO DAILY [facility] Last Admin: 08/10/19 08:44 Dose: 25 mcg Cyanocobalamin (Vitamin B12) 1,000 mcg SL DAILY [facility] Last Admin: 08/10/19 08:43 Dose: 1,000 mcg Docusate Sodium (Colace) 100 mg PO BID PRN PRN Reason: Constipation Last Admin: 08/09/19 20:34 Dose: 100 mg Enoxaparin Sodium (Lovenox) 30 mg SUBCUT DAILY [facility] Last Admin: 08/10/19 08:42 Dose: 30 mg Ferrous Sulfate (Ferrous Sulfate) 325 mg PO BIDMEALS [facility] Magnesium Hydroxide (Milk Of Magnesia) 30 ml PO BID PRN PRN Reason: Constipation Magnesium Oxide (Magnesium Oxide) 400 mg PO BEDTIME [facility] Last Admin: 08/09/19 20:24 Dose: 400 mg Morphine Sulfate (Morphine) 2 mg IVPUSH Q1H PRN PRN Reason: Breakthrough Pain Last Admin: 08/07/19 15:37 Dose: 2 mg Ondansetron HCl (Zofran) 4 mg IVPUSH Q6H PRN PRN Reason: Nausea/Vomiting Tramadol HCl (Ultram) 50 mg PO Q4H PRN PRN Reason: Pain (mild 1-3) Discontinued Medications Ephedrine Sulfate (Ephedrine Sulfate) Confirm Administered Dose 50 mg .ROUTE .STK-MED ONE Stop: 08/07/19 10:15 Fentanyl (Sublimaze) Confirm Administered Dose 100 mcg .ROUTE .STK-MED ONE Stop: 08/07/19 08:07 Fentanyl (Sublimaze) Confirm Administered Dose 100 mcg .ROUTE .STK-MED ONE Stop: 08/07/19 13:45 Lactated Ringer's (Ringers, Lactated) 1,000 mls @ 75 mls/hr IV ASDIRECTED [facility] Last Admin: 08/07/19 08:30 Dose: 75 mls/hr Cefazolin Sodium/Dextrose 2 gm (/ Premix) 50 mls @ 100 mls/hr IV ONETIME ONE Stop: 08/07/19 09:29 Last Admin: 08/07/19 09:49 Dose: 100 mls/hr Sodium Chloride (Normal Saline) Confirm Administered Dose 10 mls @ as directed .ROUTE .STK-MED ONE Stop: 08/07/19 10:25 Lactated Ringer's (Ringers, Lactated) Confirm Administered Dose 1,000 mls @ as directed .ROUTE .STK-MED ONE Stop: 08/07/19 10:52 Lactated Ringer's (Ringers, Lactated) Confirm Administered Dose 1,000 mls @ as directed .ROUTE .STK-MED ONE Stop: 08/07/19 12:34 Sodium Chloride (Normal Saline) 1,000 mls @ 125 mls/hr IV ASDIRECTED [facility] Last Admin: 08/08/19 05:54 Dose: 125 mls/hr Vancomycin HCl 1 gm/ Sodium (Chloride) 250 mls @ 250 mls/hr IV Q12H [facility] Stop: 08/08/19 04:59 Last Admin: 08/08/19 03:41 Dose: 250 mls/hr Norepinephrine Bitartrate 4 mg (/ Dextrose/Water) 250 mls @ 7.5 mls/hr IV TITRATE [facility]; Protocol Last Titration: 08/08/19 11:18 Dose: 0 mcg/min, 0 mls/hr Sodium Chloride (Normal Saline) Confirm Administered Dose 250 mls @ as directed .ROUTE .STK-MED ONE Stop: 08/07/19 13:40 Magnesium Sulfate 2 gm/ Premix 50 mls @ 12.5 mls/hr IV ONETIME ONE Stop: 08/07/19 22:38 Last Admin: 08/07/19 19:17 Dose: 12.5 mls/hr Sodium Chloride (Normal Saline) 1,000 mls @ 50 mls/hr IV ASDIRECTED [facility] Magnesium Sulfate 2 gm/ Premix 50 mls @ 12.5 mls/hr IV ONETIME ONE Stop: 08/08/19 20:59 Last Admin: 08/08/19 17:02 Dose: 12.5 mls/hr Midazolam HCl (Versed 1 Mg/Ml) Confirm Administered Dose 2 mg .ROUTE .STK-MED ONE Stop: 08/07/19 08:07 Midazolam HCl (Versed 1 Mg/Ml) Confirm Administered Dose 2 mg .ROUTE .STK-MED ONE Stop: 08/07/19 12:29 Oxycodone/Acetaminophen (Percocet 325-5 Mg) 2 tab PO Q4H PRN PRN Reason: Pain (severe 7-10) Phenylephrine HCl (Sam-Synephrine) Confirm Administered Dose 10 mg .ROUTE .STK- MED ONE Stop: 08/07/19 10:25 Phenylephrine HCl (Sam-Synephrine) Confirm Administered Dose 10 mg .ROUTE .STK- MED ONE Stop: 08/07/19 13:40 Povidone Iodine (Betadine 10% Soln) Confirm Administered Dose 1 ml .ROUTE .STK- MED ONE Stop: 08/07/19 06:41 Propofol (Diprivan 20 Ml) Confirm Administered Dose 200 mg .ROUTE .STK-MED ONE Stop: 08/07/19 08:07 Propofol (Diprivan 20 Ml) Confirm Administered Dose 200 mg .ROUTE .STK-MED ONE Stop: 08/07/19 10:45 Propofol (Diprivan 20 Ml) Confirm Administered Dose 200 mg .ROUTE .STK-MED ONE Stop: 08/07/19 11:41 Propofol (Diprivan 20 Ml) Confirm Administered Dose 200 mg .ROUTE .STK-MED ONE Stop: 08/07/19 12:21 - Exam Quality Assessment: No: Supplemental Oxygen General: Alert, Oriented, Cooperative, No Acute Distress Lungs: Normal Respiratory Effort Cardiovascular: Regular Rate, Regular Rhythm GI/Abdominal Exam: Soft, No Distention Psy/Mental Status: Alert, Normal Affect Consult PN Assessment/Plan POD#: 3 Procedures: Procedures X-RAY EXAM HIPS BI 2 VIEWS (07/04/19) X-RAY EXAM OF PELVIS (07/04/19) (1) Anemia due to blood loss, acute SNOMED Code(s): 343902761 Code(s): D62 - ACUTE POSTHEMORRHAGIC ANEMIA Current Visit: Yes Problem List Initiated/Reviewed/Updated: Yes My Orders Last 24 Hours: My Active Orders 08/09/19 14:31 Transfer Patient (Change bed) [ADT] Routine Convert IV to Saline Lock [OM.PC] Routine 08/10/19 10:37 DC Parker Catheter [Urinary Catheter Removal] [RC] Per Unit Routine 08/10/19 17:00 Ferrous Sulfate 325 mg PO BIDMEALS Plan: ASSESSMENT AND PLAN - Severe right hip osteoarthritis - she is now status post right total hip arthroplasty. Postop course has been complicated by hypotension and anemia due to blood loss. She is doing well with stable blood pressure and minimal pain. -Repeat hemoglobin in the morning -Iron supplement twice daily -Pain control -Additional postoperative care per the orthopedic team Anemia due to blood loss - more stable today. Hgb down to 7.6 but she is otherwise stable. -Transfuse if less than 7 or hypotensive -Iron supplement -hgb in the am Darrel Rao M.D.
[2019-08-10] MEDS: Ferrous Sulfate 325 MG Tab PO SCH (17:41)
--- NOTE | 2019-08-10 18:47 | CRLCR ---
INDICATION: Right acetabular fracture and right hip arthroplasty. TECHNIQUE: AP pelvis. COMPARISON: 08/07/2019. FINDINGS: The medial wall right acetabular fracture is unchanged with mild protrusio acetabuli. The components of the right hip arthroplasty are intact. Moderate to marked osteoarthritic changes at the left hip joint with joint space narrowing, subchondral sclerosis and marginal osteophytes. Impression: 1. Stable medial wall right acetabular fracture with mild protrusio acetabuli. 2. Visualized right hip arthroplasty is intact. 3. Moderate to marked left hip osteoarthritis. Dictated by Richar Ibarra MD @ Aug 10 2019 6:40PM Signed by Dr. Richar Ibarra @ Aug 10 2019 6:45PM
[2019-08-10] MEDS: Magnesium Oxide 400 MG Tab PO SCH (20:04)
[2019-08-11] MEDS: Ferrous Sulfate 325 MG Tab PO SCH (08:07)
[2019-08-11] MEDS: Nozin Nasal Sanitizer NASBOTH SCH (09:14)
[2019-08-11] MEDS: Enoxaparin 30 MG/0.3 ML Syringe SUBCUT SCH (09:16)
[2019-08-11] MEDS: Cyanocobalamin (Vitamin B12) 1,000 MCG Tab SL SCH (09:16)
[2019-08-11] MEDS: Cholecalciferol (Vitamin D3) 25 MCG Tab PO SCH (09:17)
--- NOTE | 2019-08-11 10:07 | PCM.DCSUM1 ---
Discharge Summary - Hospital Course Free Text/Narrative:: 74 year old female admitted for right MARBELLA for progressive pain due to end stage OA. Diagnosis: Stroke: No Modified [place] Scale: No Symptoms at All Modified [place] Scale Score: 0 - Discharge Data Discharge Date: 08/11/19 Discharge Disposition: DC/Tfer to SNF 03 Condition: Good - Referral to Home Health Date of Face to Face Encounter: 08/11/19 Primary Care Physician: Sherri Bowers MD - Patient Summary/Data Operative Procedure(s) Performed: right Total Hip Arthroplasty Consults: Consultations 08/07/19 13:07 Consult to Case Management/New Car Sales Manager [CONS] Routine Comment: Physician Instructions: Service(s) to be Consulted: Case Management Reason for Consult: Plan for Discharge PT Evaluation and Treatment [CONS] Routine Please Evaluate and Treat. PT Reason for Consult: Post op Ortho Surgery Pending Discharge: Yes Discharge Disposition: Shelter Facility Special Instructions: Right leg posterior hip precautions, partial weight bearing- 50% This query below is only for informational purposes and is not editable. 08/07/19 14:16 Consult to Physician [CONS] Urgent Consulting Provider: Darrel Rao Call Completed to Consulting Physician: Yes Reason for Consult: Post op anemia and hypotension Date Notified: 08/07/19 Time Notified: 02:20 08/09/19 14:40 Consult to Occupational Therapy [OT Evaluation and Treatment] [CONS] Routine Please Evaluate and Treat. OT Reason for Consult: ADL's Special Instructions: S/P right MARBELLA, ADLs and adaptive devices This query below is only for informational purposes and is not editable. Admission Diagnosis/Problem: Osteoarthritis of both hips Hospital Course: Admitted for right MARBELLA, fracture of medial wall of acetabulum resulting in increased blood loss. Watched in ICU on pressors and transfused two units PRBCs. Has been stable since transfer to floor. Tolerating PT/OT and partial weight bearing. - Patient Instructions Activity: Apply Ice, Partial Weight Bearing Driving: Do Not Drive Showering/Bathing: May Shower Notify Provider of: Fever, Increased Pain, Swelling and Redness, Drainage - Discharge Plan *PRESCRIPTION DRUG MONITORING PROGRAM REVIEWED*: No *COPY OF PRESCRIPTION DRUG MONITORING REPORT IN PATIENT ARNOLD: No Home Medications: Home Meds Cyanocobalamin (Vitamin B-12) [Vitamin B-12] 1,000 mcg SL DAILY 07/04/19 [ History] Magnesium 250 mg PO BEDTIME 07/04/19 [History] Potassium Gluconate [Potassium] 600 mg PO DAILY PRN 07/04/19 [History] Cholecalciferol (Vitamin D3) [Vitamin D3] 25 mcg PO DAILY 08/07/19 [History] Oxygen Therapy Mode: Room Air Patient Handouts: Total Hip Replacement, Posterior, Care After Referrals: Juvencio Lares MD [Physician] - 08/22/19 10:45 am (Please arrive 15 minutes rubina to register for your appointment. Section at the ER desk.) - Discharge Summary/Plan Comment DC Time >30 min.: Yes - Patient Data Vitals - Most Recent: Last Vital Signs Temp 36.7 C 08/11/19 07:00 Pulse 88 08/11/19 07:00 Resp 16 08/11/19 07:00 BP 118/58 L 08/11/19 07:00 Pulse Ox 95 08/11/19 07:00 Weight - Most Recent: 74.2 kg I&O - Last 24 hours: Intake & Output 08/10/19 08/11/19 08/11/19 22:59 06:59 14:59 Output Total 425 Balance -425 Lab Results - Last 24 hrs: Laboratory Results - last 24 hr 08/07/19 Range/Units 07:52 Crossmatch See Detail Med Orders - Current: Current Medications Hydrocodone Bitart/Acetaminophen ([place] 325-5 Mg) 1 tab PO Q3H PRN PRN Reason: Pain (moderate 4-6) Last Admin: 08/08/19 13:24 Dose: 1 tab Bandage/Support Products ( Nasal Press Tender [employer] Goods) 1 applic NASBOTH BID [facility] Last Admin: 08/11/19 09:14 Dose: 1 applic Cholecalciferol (Vitamin D3) 25 mcg PO DAILY [facility] Last Admin: 08/11/19 09:17 Dose: 25 mcg Cyanocobalamin (Vitamin B12) 1,000 mcg SL DAILY [facility] Last Admin: 08/11/19 09:16 Dose: 1,000 mcg Docusate Sodium (Colace) 100 mg PO BID PRN PRN Reason: Constipation Last Admin: 08/09/19 20:34 Dose: 100 mg Enoxaparin Sodium (Lovenox) 30 mg SUBCUT DAILY [facility] Last Admin: 08/11/19 09:16 Dose: 30 mg Ferrous Sulfate (Ferrous Sulfate) 325 mg PO BIDMEALS [facility] Last Admin: 08/11/19 08:07 Dose: 325 mg Magnesium Hydroxide (Milk Of Magnesia) 30 ml PO BID PRN PRN Reason: Constipation Magnesium Oxide (Magnesium Oxide) 400 mg PO BEDTIME [facility] Last Admin: 08/10/19 20:04 Dose: 400 mg Morphine Sulfate (Morphine) 2 mg IVPUSH Q1H PRN PRN Reason: Breakthrough Pain Last Admin: 08/07/19 15:37 Dose: 2 mg Ondansetron HCl (Zofran) 4 mg IVPUSH Q6H PRN PRN Reason: Nausea/Vomiting Tramadol HCl (Ultram) 50 mg PO Q4H PRN PRN Reason: Pain (mild 1-3) Last Admin: 08/11/19 00:12 Dose: 50 mg Discontinued Medications Ephedrine Sulfate (Ephedrine Sulfate) Confirm Administered Dose 50 mg .ROUTE .STK-MED ONE Stop: 08/07/19 10:15 Fentanyl (Sublimaze) Confirm Administered Dose 100 mcg .ROUTE .STK-MED ONE Stop: 08/07/19 08:07 Fentanyl (Sublimaze) Confirm Administered Dose 100 mcg .ROUTE .STK-MED ONE Stop: 08/07/19 13:45 Lactated Ringer's (Ringers, Lactated) 1,000 mls @ 75 mls/hr IV ASDIRECTED [facility] Last Admin: 08/07/19 08:30 Dose: 75 mls/hr Cefazolin Sodium/Dextrose 2 gm (/ Premix) 50 mls @ 100 mls/hr IV ONETIME ONE Stop: 08/07/19 09:29 Last Admin: 08/07/19 09:49 Dose: 100 mls/hr Sodium Chloride (Normal Saline) Confirm Administered Dose 10 mls @ as directed .ROUTE .STK-MED ONE Stop: 08/07/19 10:25 Lactated Ringer's (Ringers, Lactated) Confirm Administered Dose 1,000 mls @ as directed .ROUTE .STK-MED ONE Stop: 08/07/19 10:52 Lactated Ringer's (Ringers, Lactated) Confirm Administered Dose 1,000 mls @ as directed .ROUTE .STK-MED ONE Stop: 08/07/19 12:34 Sodium Chloride (Normal Saline) 1,000 mls @ 125 mls/hr IV ASDIRECTED [facility] Last Admin: 08/08/19 05:54 Dose: 125 mls/hr Vancomycin HCl 1 gm/ Sodium (Chloride) 250 mls @ 250 mls/hr IV Q12H [facility] Stop: 08/08/19 04:59 Last Admin: 08/08/19 03:41 Dose: 250 mls/hr Norepinephrine Bitartrate 4 mg (/ Dextrose/Water) 250 mls @ 7.5 mls/hr IV TITRATE [facility]; Protocol Last Titration: 08/08/19 11:18 Dose: 0 mcg/min, 0 mls/hr Sodium Chloride (Normal Saline) Confirm Administered Dose 250 mls @ as directed .ROUTE .STK-MED ONE Stop: 08/07/19 13:40 Magnesium Sulfate 2 gm/ Premix 50 mls @ 12.5 mls/hr IV ONETIME ONE Stop: 08/07/19 22:38 Last Admin: 08/07/19 19:17 Dose: 12.5 mls/hr Sodium Chloride (Normal Saline) 1,000 mls @ 50 mls/hr IV ASDIRECTED [facility] Magnesium Sulfate 2 gm/ Premix 50 mls @ 12.5 mls/hr IV ONETIME ONE Stop: 08/08/19 20:59 Last Admin: 08/08/19 17:02 Dose: 12.5 mls/hr Midazolam HCl (Versed 1 Mg/Ml) Confirm Administered Dose 2 mg .ROUTE .STK-MED ONE Stop: 08/07/19 08:07 Midazolam HCl (Versed 1 Mg/Ml) Confirm Administered Dose 2 mg .ROUTE .STK-MED ONE Stop: 08/07/19 12:29 Oxycodone/Acetaminophen (Percocet 325-5 Mg) 2 tab PO Q4H PRN PRN Reason: Pain (severe 7-10) Phenylephrine HCl (Sam-Synephrine) Confirm Administered Dose 10 mg .ROUTE .STK- MED ONE Stop: 08/07/19 10:25 Phenylephrine HCl (Sam-Synephrine) Confirm Administered Dose 10 mg .ROUTE .STK- MED ONE Stop: 08/07/19 13:40 Povidone Iodine (Betadine 10% Soln) Confirm Administered Dose 1 ml .ROUTE .STK- MED ONE Stop: 08/07/19 06:41 Propofol (Diprivan 20 Ml) Confirm Administered Dose 200 mg .ROUTE .STK-MED ONE Stop: 08/07/19 08:07 Propofol (Diprivan 20 Ml) Confirm Administered Dose 200 mg .ROUTE .STK-MED ONE Stop: 08/07/19 10:45 Propofol (Diprivan 20 Ml) Confirm Administered Dose 200 mg .ROUTE .STK-MED ONE Stop: 08/07/19 11:41 Propofol (Diprivan 20 Ml) Confirm Administered Dose 200 mg .ROUTE .STK-MED ONE Stop: 08/07/19 12:21
== END 2019-08-11 10:50 | DRG 470 ==
LOC: JP.SDS 07:24 → JP.ICU 13:07 → UNDOADMIN 14:15 → JP.ICU 14:15 → JP.MS 08-09 18:52 → UNDODISIN 08-11 10:50
PROVIDERS: ADMIT Specialist; ATTEND Specialist
PROC: 0SR902A Replacement of Right Hip Joint with Metal on Polyethylene Synthetic Substitute, Uncemented, Open Approach (ICD-10-PCS; principal; 2019-08-07)
PROC: 30233N1 Transfusion of Nonautologous Red Blood Cells into Peripheral Vein, Percutaneous Approach (ICD-10-PCS; 2019-08-07)
DX: M16.11 Unilateral primary osteoarthritis, right hip (principal); D62 Acute posthemorrhagic anemia; M84.454A Pathological fracture, pelvis, initial encounter for fracture; M96.69 Fracture of other bone following insertion of orthopedic implant, joint prosthesis, or bone plate; R00.2 Palpitations; I95.81 Postprocedural hypotension; E78.5 Hyperlipidemia, unspecified; M16.12 Unilateral primary osteoarthritis, left hip; K21.9 Gastro-esophageal reflux disease without esophagitis; Z88.0 Allergy status to penicillin; Z98.49 Cataract extraction status, unspecified eye; Z87.891 Personal history of nicotine dependence
CPT/HCPCS: 27130; 36415; 72170 ×2; 73501 ×2; 85027; 86850; 86900; 86901; 86920 ×2; 86922 ×2; A9270; C1713 ×4; C1776 ×7; J0690; J2250 ×2; J2370 ×2; J2704 ×4; J3010 ×2; J7050; J7060; J7120 ×3; 36430; 80048; 83735; 85018; 85025; 97110-GP; 97162-GP; 97165-GO; 97530-GP; 97535-GP; J1650; J2270; J3370; J3475; J7030; P9016

== ENCOUNTER 2019-10-09 07:30 | Inpatient (IN) | payer MEDICARE, BC ==
[2019-10-09] MEDS: Nozin Nasal Sanitizer NASBOTH SCH ×2 (09:14→20:13)
[2019-10-09] MEDS: Lactated Ringers 1,000 ML IV SCH ×2 (09:29→11:33)
[2019-10-09] MEDS ORDERED: Midazolam 1 MG/ML 2 ML SDV ONE (10:42)
[2019-10-09] MEDS ORDERED: Propofol 200 MG/20 ML SDV ONE ×2 (10:42→12:05)
[2019-10-09] MEDS ORDERED: ePHEDrine 50 MG/ML SDV ONE (12:15)
[2019-10-09] MEDS: Povidone-Iodine 10% Soln 118.25 ML Bottle ONE ×2 (12:23→13:25)
[2019-10-09] MEDS ORDERED: traMADol 50 MG Tab PO PRN (13:24)
[2019-10-09] MEDS ORDERED: Ondansetron 4 MG/2 ML SDV IVPUSH PRN (13:24)
--- NOTE | 2019-10-09 14:21 | CR ---
Pelvis 1V or 2V CLINICAL HISTORY: Left hip arthroplasty FINDINGS: 2 AP views of the hips and lower pelvis were obtained. Patient has bilateral total hip arthroplasties. Components appear well seated. There is some subcutaneous and intra-articular air on the left from recent surgery IMPRESSION: Limited AP exam of both hips show bilateral hip arthroplasties. Components appear well seated
[2019-10-09] MEDS: Ketorolac 30 MG/ML SDV IVPUSH SCH ×2 (16:25→23:53)
[2019-10-09] MEDS: Sodium Chloride 0.9% 1,000 ML IV SCH (16:42)
[2019-10-09] MEDS: Magnesium Oxide 400 MG Tab PO SCH (20:13)
[2019-10-09] MEDS: Docusate Sodium 100 MG Cap PO SCH (20:30)
[2019-10-10] MEDS: Sodium Chloride 0.9% 1,000 ML IV SCH ×2 (01:25→09:35)
[2019-10-10] MEDS: Ketorolac 30 MG/ML SDV IVPUSH SCH ×2 (07:47→17:16)
[2019-10-10] MEDS: Nozin Nasal Sanitizer NASBOTH SCH ×2 (08:29→21:06)
[2019-10-10] MEDS: Enoxaparin 30 MG/0.3 ML Syringe SUBCUT SCH (08:30)
[2019-10-10] MEDS: Cyanocobalamin (Vitamin B12) 1,000 MCG Tab PO SCH (08:30)
[2019-10-10] MEDS: Docusate Sodium 100 MG Cap PO SCH ×3 (08:30→21:02)
[2019-10-10] MEDS: Cholecalciferol (Vitamin D3) 25 MCG Tab PO SCH (08:30)
[2019-10-10] MEDS: Ketorolac 10 MG Tab PO SCH ×2 (18:33→23:27)
[2019-10-10] MEDS: Acetaminophen 325 MG Tab PO PRN (20:10)
[2019-10-10] MEDS: Magnesium Oxide 400 MG Tab PO SCH (21:02)
[2019-10-11] MEDS: Ketorolac 10 MG Tab PO SCH (05:27)
[2019-10-11] MEDS: Ketorolac 30 MG/ML SDV IVPUSH SCH (08:05)
[2019-10-11] MEDS: Docusate Sodium 100 MG Cap PO SCH ×2 (09:03→20:50)
[2019-10-11] MEDS: Nozin Nasal Sanitizer NASBOTH SCH ×2 (09:04→20:49)
[2019-10-11] MEDS: Cholecalciferol (Vitamin D3) 25 MCG Tab PO SCH (09:05)
[2019-10-11] MEDS: Cyanocobalamin (Vitamin B12) 1,000 MCG Tab PO SCH (09:05)
[2019-10-11] MEDS: Enoxaparin 30 MG/0.3 ML Syringe SUBCUT SCH (09:05)
[2019-10-11] MEDS: Acetaminophen 325 MG Tab PO PRN (16:05)
--- NOTE | 2019-10-11 16:15 | PCM.SURGPN ---
- General Info Date of Service: 10/11/19 Date of Surgery/Procedure: 10/09/19 POD#: 2 Functional Status: Reports: Pain Controlled, Tolerating Diet, Ambulating, Urinating - Review of Systems General: Reports: No Symptoms HEENT: Reports: No Symptoms Pulmonary: Reports: No Symptoms Cardiovascular: Reports: No Symptoms Gastrointestinal: Reports: No Symptoms Genitourinary: Reports: No Symptoms Musculoskeletal: Reports: Other (left leg weakness) Skin: Reports: No Symptoms Neurological: Reports: No Symptoms Psychiatric: Reports: No Symptoms - Patient Data Vitals - Most Recent: Last Vital Signs Temp 38.2 C H 10/11/19 16:05 Pulse 95 10/11/19 15:58 Resp 16 10/11/19 15:58 BP 123/81 10/11/19 15:58 Pulse Ox 97 10/11/19 15:58 Weight - Most Recent: 65.402 kg I&O - Last 24 Hours: Intake & Output 10/11/19 10/11/19 10/11/19 06:59 14:59 22:59 Intake Total 700 300 Balance 700 300 Med Orders - Current: Current Medications Acetaminophen (Tylenol) 650 mg PO Q4H PRN PRN Reason: Pain/Fever Last Admin: 10/11/19 16:05 Dose: 650 mg Bandage/Support Products ( Nasal Solder Technician) 1 applic NASBOTH BID [facility] Stop: 10/15/19 21:01 Last Admin: 10/11/19 09:04 Dose: 1 swab Cholecalciferol (Vitamin D3) 25 mcg PO DAILY [facility] Last Admin: 10/11/19 09:05 Dose: 25 mcg Cyanocobalamin (Vitamin B12) 1,000 mcg PO DAILY [facility] Last Admin: 10/11/19 09:05 Dose: 1,000 mcg Docusate Sodium (Colace) 100 mg PO BID [facility] Last Admin: 10/11/19 09:03 Dose: Not Given Enoxaparin Sodium (Lovenox) 30 mg SUBCUT DAILY [facility] Last Admin: 10/11/19 09:05 Dose: 30 mg Magnesium Oxide (Magnesium Oxide) 400 mg PO BEDTIME [facility] Last Admin: 10/10/19 21:02 Dose: 400 mg Ondansetron HCl (Zofran) 4 mg IVPUSH Q6H PRN PRN Reason: Nausea/Vomiting Tramadol HCl (Ultram) 50 mg PO Q6H PRN PRN Reason: Pain (severe 7-10) Discontinued Medications Ephedrine Sulfate (Ephedrine Sulfate) Confirm Administered Dose 50 mg .ROUTE .STK-MED ONE Stop: 10/09/19 12:16 Lactated Ringer's (Ringers, Lactated) 1,000 mls @ 75 mls/hr IV ASDIRECTED [facility] Last Admin: 10/09/19 11:33 Dose: 75 mls/hr Vancomycin HCl 1 gm/ Sodium (Chloride) 250 mls @ 150 mls/hr IV ONETIME ONE Stop: 10/09/19 11:39 Last Admin: 10/09/19 11:35 Dose: 150 mls/hr Tranexamic Acid 700 mg/ Sodium (Chloride) 57 mls @ 228 mls/hr IV ONETIME ONE Stop: 10/09/19 10:29 Last Admin: 10/09/19 14:43 Dose: Not Given Acetaminophen (Ofirmev) Confirm Administered Dose 100 mls @ as directed .ROUTE .STK-MED ONE Stop: 10/09/19 10:56 Sodium Chloride (Normal Saline) 1,000 mls @ 125 mls/hr IV ASDIRECTED [facility] Last Admin: 10/10/19 09:35 Dose: 125 mls/hr Vancomycin HCl 1 gm/ Sodium (Chloride) 250 mls @ 250 mls/hr IV Q12H [facility] Stop: 10/10/19 10:59 Last Admin: 10/10/19 09:46 Dose: 250 mls/hr Tranexamic Acid 700 mg/ Sodium (Chloride) 57 mls @ 228 mls/hr IV ONETIME ONE Stop: 10/09/19 15:14 Last Admin: 10/09/19 15:38 Dose: 228 mls/hr Ketorolac Tromethamine (Toradol) 15 mg IVPUSH Q8H [facility] Stop: 10/11/19 08:01 Last Admin: 10/11/19 08:05 Dose: Not Given Ketorolac Tromethamine (Toradol) 10 mg PO Q6H [facility] Stop: 10/11/19 06:01 Last Admin: 10/11/19 05:27 Dose: 10 mg Midazolam HCl (Versed 1 Mg/Ml) Confirm Administered Dose 2 mg .ROUTE .STK-MED ONE Stop: 10/09/19 10:43 Povidone Iodine (Betadine 10% Soln) Confirm Administered Dose 1 ml .ROUTE .STK- MED ONE Stop: 10/09/19 06:35 Last Admin: 10/09/19 13:25 Dose: 30 ml Propofol (Diprivan 20 Ml) Confirm Administered Dose 200 mg .ROUTE .STK-MED ONE Stop: 10/09/19 10:43 Propofol (Diprivan 20 Ml) Confirm Administered Dose 200 mg .ROUTE .STK-MED ONE Stop: 10/09/19 12:06 - Exam Wound/Incisions: Healing Well, No Drainage General: Alert, Oriented HEENT: Pupils Equal Neck: Supple Lungs: Clear to Auscultation, Normal Respiratory Effort Cardiovascular: Regular Rate, Regular Rhythm GI/Abdominal Exam: Normal Bowel Sounds, Soft, Non-Tender, No Distention Extremities: Other (weakness with foot dorsiflexion, knee extension and hip flexion) Skin: Warm, Dry Neurological: No New Focal Deficit Psy/Mental Status: Alert, Normal Affect, Normal Mood Sepsis Event Note - Evaluation Sepsis Screening Result: No Definite Risk - Focused Exam Vital Signs: Vital Signs Temp Temp Pulse Resp BP Pulse Ox 10/11/19 16:05 38.2 C H 10/11/19 15:58 38.2 C H 95 16 123/81 97 10/11/19 11:23 36.9 C 81 18 119/52 L 99 10/11/19 07:44 36.7 C 80 16 120/69 96 Date Exam was Performed: 10/11/19 Time Exam was Performed: 16:10 - Problem List & Annotations (1) Status post total hip replacement, left SNOMED Code(s): 106497849140, 949871486724 Code(s): Z96.642 - PRESENCE OF LEFT ARTIFICIAL HIP JOINT Status: Acute Current Visit: Yes (2) Osteoarthritis of hips, bilateral SNOMED Code(s): 884698411555699 Code(s): M16.0 - BILATERAL PRIMARY OSTEOARTHRITIS OF HIP Status: Chronic Current Visit: No Qualifiers: Osteoarthritis type: primary - Problem List Review Problem List Initiated/Reviewed/Updated: Yes - My Orders Last 24 Hours: Active Orders 24 hr Category Date Time Status Peripheral IV Discontinue [OM.PC] Routine Oth 10/10/19 17:38 Ordered Medication Orders Acetaminophen (Tylenol) 650 mg PO Q4H PRN PRN Reason: Pain/Fever Last Admin: 10/11/19 16:05 Dose: 650 mg Admin: 10/10/19 20:10 Dose: 650 mg Bandage/Support Products ( Nasal Solder Technician) 1 applic NASBOTH BID [facility] Stop: 10/15/19 21:01 Last Admin: 10/11/19 09:04 Dose: 1 swab Admin: 10/10/19 21:06 Dose: 1 swab Admin: 10/10/19 08:29 Dose: 1 swab Admin: 10/09/19 20:13 Dose: 1 swab Admin: 10/09/19 09:14 Dose: 3 swab Cholecalciferol (Vitamin D3) 25 mcg PO DAILY [facility] Last Admin: 10/11/19 09:05 Dose: 25 mcg Admin: 10/10/19 08:30 Dose: 25 mcg Cyanocobalamin (Vitamin B12) 1,000 mcg PO DAILY [facility] Last Admin: 10/11/19 09:05 Dose: 1,000 mcg Admin: 10/10/19 08:30 Dose: 1,000 mcg Docusate Sodium (Colace) 100 mg PO BID [facility] Last Admin: 10/11/19 09:03 Dose: Not Given Admin: 10/10/19 21:02 Dose: Not Given Admin: 10/10/19 08:33 Dose: Not Given Admin: 10/09/19 20:30 Dose: Not Given Enoxaparin Sodium (Lovenox) 30 mg SUBCUT DAILY [facility] Last Admin: 10/11/19 09:05 Dose: 30 mg Admin: 10/10/19 08:30 Dose: 30 mg Magnesium Oxide (Magnesium Oxide) 400 mg PO BEDTIME [facility] Last Admin: 10/10/19 21:02 Dose: 400 mg Admin: 10/09/19 20:13 Dose: 400 mg Ondansetron HCl (Zofran) 4 mg IVPUSH Q6H PRN PRN Reason: Nausea/Vomiting Tramadol HCl (Ultram) 50 mg PO Q6H PRN PRN Reason: Pain (severe 7-10) - Assessment Assessment (Free Text/Narrative):: Doing very well with pain control, slow with PT secondary to weakness in left leg, seems to be more than foot drop from sciatic as she has weakness of quad and hip flexor as well. - Plan Plan (Free Text/Narrative):: Continue PT/OT, monitor left leg strength, hoping to discharge to home with Home Health tomorrow
--- NOTE | 2019-10-11 16:19 | PCM.SURGPN ---
- General Info Date of Service: 10/10/19 Date of Surgery/Procedure: 10/09/19 POD#: 1 Functional Status: Reports: Pain Controlled, Tolerating Diet, Ambulating, Urinating - Review of Systems General: Reports: No Symptoms HEENT: Reports: No Symptoms Pulmonary: Reports: No Symptoms Cardiovascular: Reports: No Symptoms Gastrointestinal: Reports: No Symptoms Genitourinary: Reports: No Symptoms Musculoskeletal: Reports: Leg Pain Skin: Reports: No Symptoms Neurological: Reports: No Symptoms Psychiatric: Reports: No Symptoms - Patient Data Vitals - Most Recent: Last Vital Signs Temp 38.2 C H 10/11/19 16:05 Pulse 95 10/11/19 15:58 Resp 16 10/11/19 15:58 BP 123/81 10/11/19 15:58 Pulse Ox 97 10/11/19 15:58 Weight - Most Recent: 65.402 kg I&O - Last 24 Hours: Intake & Output 10/11/19 10/11/19 10/11/19 06:59 14:59 22:59 Intake Total 700 300 Balance 700 300 Med Orders - Current: Current Medications Acetaminophen (Tylenol) 650 mg PO Q4H PRN PRN Reason: Pain/Fever Last Admin: 10/11/19 16:05 Dose: 650 mg Bandage/Support Products ( Nasal Real Estate Account Executive) 1 applic NASBOTH BID [facility] Stop: 10/15/19 21:01 Last Admin: 10/11/19 09:04 Dose: 1 swab Cholecalciferol (Vitamin D3) 25 mcg PO DAILY [facility] Last Admin: 10/11/19 09:05 Dose: 25 mcg Cyanocobalamin (Vitamin B12) 1,000 mcg PO DAILY [facility] Last Admin: 10/11/19 09:05 Dose: 1,000 mcg Docusate Sodium (Colace) 100 mg PO BID [facility] Last Admin: 10/11/19 09:03 Dose: Not Given Enoxaparin Sodium (Lovenox) 30 mg SUBCUT DAILY [facility] Last Admin: 10/11/19 09:05 Dose: 30 mg Magnesium Oxide (Magnesium Oxide) 400 mg PO BEDTIME [facility] Last Admin: 10/10/19 21:02 Dose: 400 mg Ondansetron HCl (Zofran) 4 mg IVPUSH Q6H PRN PRN Reason: Nausea/Vomiting Tramadol HCl (Ultram) 50 mg PO Q6H PRN PRN Reason: Pain (severe 7-10) Discontinued Medications Ephedrine Sulfate (Ephedrine Sulfate) Confirm Administered Dose 50 mg .ROUTE .STK-MED ONE Stop: 10/09/19 12:16 Lactated Ringer's (Ringers, Lactated) 1,000 mls @ 75 mls/hr IV ASDIRECTED [facility] Last Admin: 10/09/19 11:33 Dose: 75 mls/hr Vancomycin HCl 1 gm/ Sodium (Chloride) 250 mls @ 150 mls/hr IV ONETIME ONE Stop: 10/09/19 11:39 Last Admin: 10/09/19 11:35 Dose: 150 mls/hr Tranexamic Acid 700 mg/ Sodium (Chloride) 57 mls @ 228 mls/hr IV ONETIME ONE Stop: 10/09/19 10:29 Last Admin: 10/09/19 14:43 Dose: Not Given Acetaminophen (Ofirmev) Confirm Administered Dose 100 mls @ as directed .ROUTE .STK-MED ONE Stop: 10/09/19 10:56 Sodium Chloride (Normal Saline) 1,000 mls @ 125 mls/hr IV ASDIRECTED [facility] Last Admin: 10/10/19 09:35 Dose: 125 mls/hr Vancomycin HCl 1 gm/ Sodium (Chloride) 250 mls @ 250 mls/hr IV Q12H [facility] Stop: 10/10/19 10:59 Last Admin: 10/10/19 09:46 Dose: 250 mls/hr Tranexamic Acid 700 mg/ Sodium (Chloride) 57 mls @ 228 mls/hr IV ONETIME ONE Stop: 10/09/19 15:14 Last Admin: 10/09/19 15:38 Dose: 228 mls/hr Ketorolac Tromethamine (Toradol) 15 mg IVPUSH Q8H [facility] Stop: 10/11/19 08:01 Last Admin: 10/11/19 08:05 Dose: Not Given Ketorolac Tromethamine (Toradol) 10 mg PO Q6H [facility] Stop: 10/11/19 06:01 Last Admin: 10/11/19 05:27 Dose: 10 mg Midazolam HCl (Versed 1 Mg/Ml) Confirm Administered Dose 2 mg .ROUTE .STK-MED ONE Stop: 10/09/19 10:43 Povidone Iodine (Betadine 10% Soln) Confirm Administered Dose 1 ml .ROUTE .STK- MED ONE Stop: 10/09/19 06:35 Last Admin: 10/09/19 13:25 Dose: 30 ml Propofol (Diprivan 20 Ml) Confirm Administered Dose 200 mg .ROUTE .STK-MED ONE Stop: 10/09/19 10:43 Propofol (Diprivan 20 Ml) Confirm Administered Dose 200 mg .ROUTE .STK-MED ONE Stop: 10/09/19 12:06 - Exam Wound/Incisions: Dressing Dry and Intact General: Alert, Oriented HEENT: Pupils Equal Neck: Supple Lungs: Clear to Auscultation, Normal Respiratory Effort Cardiovascular: Regular Rate, Regular Rhythm GI/Abdominal Exam: Normal Bowel Sounds, Soft, Non-Tender, No Distention Extremities: Limited Range of Motion Skin: Warm, Dry Neurological: No New Focal Deficit Psy/Mental Status: Alert, Normal Affect, Normal Mood Sepsis Event Note - Evaluation Sepsis Screening Result: No Definite Risk - Focused Exam Vital Signs: Vital Signs Temp Temp Pulse Resp BP Pulse Ox 10/11/19 16:05 38.2 C H 10/11/19 15:58 38.2 C H 95 16 123/81 97 10/11/19 11:23 36.9 C 81 18 119/52 L 99 10/11/19 07:44 36.7 C 80 16 120/69 96 Date Exam was Performed: 10/11/19 Time Exam was Performed: 16:16 - Problem List & Annotations (1) Status post total hip replacement, left SNOMED Code(s): 584392068399, 056900629819 Code(s): Z96.642 - PRESENCE OF LEFT ARTIFICIAL HIP JOINT Status: Acute Current Visit: Yes (2) Osteoarthritis of hips, bilateral SNOMED Code(s): 950205375351360 Code(s): M16.0 - BILATERAL PRIMARY OSTEOARTHRITIS OF HIP Status: Chronic Current Visit: No Qualifiers: Osteoarthritis type: primary - Problem List Review Problem List Initiated/Reviewed/Updated: Yes - My Orders Last 24 Hours: Active Orders 24 hr Category Date Time Status Peripheral IV Discontinue [OM.PC] Routine Oth 10/10/19 17:38 Ordered Medication Orders Acetaminophen (Tylenol) 650 mg PO Q4H PRN PRN Reason: Pain/Fever Last Admin: 10/11/19 16:05 Dose: 650 mg Admin: 10/10/19 20:10 Dose: 650 mg Bandage/Support Products ( Nasal Real Estate Account Executive) 1 applic NASBOTH BID [facility] Stop: 10/15/19 21:01 Last Admin: 10/11/19 09:04 Dose: 1 swab Admin: 10/10/19 21:06 Dose: 1 swab Admin: 10/10/19 08:29 Dose: 1 swab Admin: 10/09/19 20:13 Dose: 1 swab Admin: 10/09/19 09:14 Dose: 3 swab Cholecalciferol (Vitamin D3) 25 mcg PO DAILY [facility] Last Admin: 10/11/19 09:05 Dose: 25 mcg Admin: 10/10/19 08:30 Dose: 25 mcg Cyanocobalamin (Vitamin B12) 1,000 mcg PO DAILY [facility] Last Admin: 10/11/19 09:05 Dose: 1,000 mcg Admin: 10/10/19 08:30 Dose: 1,000 mcg Docusate Sodium (Colace) 100 mg PO BID [facility] Last Admin: 10/11/19 09:03 Dose: Not Given Admin: 10/10/19 21:02 Dose: Not Given Admin: 10/10/19 08:33 Dose: Not Given Admin: 10/09/19 20:30 Dose: Not Given Enoxaparin Sodium (Lovenox) 30 mg SUBCUT DAILY [facility] Last Admin: 10/11/19 09:05 Dose: 30 mg Admin: 10/10/19 08:30 Dose: 30 mg Magnesium Oxide (Magnesium Oxide) 400 mg PO BEDTIME [facility] Last Admin: 10/10/19 21:02 Dose: 400 mg Admin: 10/09/19 20:13 Dose: 400 mg Ondansetron HCl (Zofran) 4 mg IVPUSH Q6H PRN PRN Reason: Nausea/Vomiting Tramadol HCl (Ultram) 50 mg PO Q6H PRN PRN Reason: Pain (severe 7-10) - Assessment Assessment (Free Text/Narrative):: Did very well overnight, pain controlled, left leg weak with PT today - Plan Plan (Free Text/Narrative):: Continue PT/OT, planning discharge to home with HH if able.
[2019-10-11] MEDS: Magnesium Oxide 400 MG Tab PO SCH (20:50)
[2019-10-12] MEDS: Acetaminophen 325 MG Tab PO PRN (00:13)
[2019-10-12] MEDS: Enoxaparin 30 MG/0.3 ML Syringe SUBCUT SCH (08:44)
[2019-10-12] MEDS: Cyanocobalamin (Vitamin B12) 1,000 MCG Tab PO SCH (08:44)
[2019-10-12] MEDS: Cholecalciferol (Vitamin D3) 25 MCG Tab PO SCH (08:44)
[2019-10-12] MEDS: Docusate Sodium 100 MG Cap PO SCH ×2 (08:44→08:49)
[2019-10-12] MEDS: Nozin Nasal Sanitizer NASBOTH SCH (08:45)
--- NOTE | 2019-10-18 17:21 | OR ---
DATE OF PROCEDURE: 10/09/2019 SURGEON: Juvencio Lares MD PREOPERATIVE DIAGNOSIS: Osteoarthritis, left hip. POSTOPERATIVE DIAGNOSIS: Osteoarthritis, left hip. PROCEDURE: Left total hip arthroplasty using Janna Trabecular metal multi-holed cup size 56 mm, a Baeza size 14 stem, 40 mm +6.5 neck length femoral head. ANESTHESIA: Spinal with sedation. INDICATIONS: Claudia is a 74-year-old female with a history of bilateral hip pain and end- stage osteoarthritis. She recently underwent a right total hip arthroplasty and has recovered quite well from that. She is now being limited by left hip pain. X-rays reveal an end-stage osteoarthritis, and she presents for left total hip arthroplasty. Risks, benefits, and potential complications were discussed. She does have a history of osteoporosis and did sustain a medial wall fracture on the right hip and appropriate implants are available. DESCRIPTION OF PROCEDURE: After adequate anesthesia was obtained, the patient was placed in the lateral decubitus position and secured with the hip positioner. The left hip and leg were then prepped and draped in a sterile fashion. Incision made over the greater trochanter and carried down through the subcutaneous tissues. Hemostasis was obtained with electrocautery. IT band and tensor fascia were split in line with its fibers and the Charnley retractor was placed. Short external rotators were taken off the greater trochanter with electrocautery. Hip capsule was then entered in a T-fashion. Moderate joint effusion was present. The femoral head was dislocated and exposed. Retractor was placed about the femoral neck and a reciprocating saw was used to make a femoral neck cut. Retractors were placed about the acetabulum. Labrum and soft tissues were excised from the acetabulum. The acetabulum was then sequentially reamed to 56 mm. This did take it right down to the medial wall. A 56 mm diameter cup was then press-fit into position. Additional fixation was obtained with acetabular screw. A liner for a 40 mm diameter head was then secured within the acetabular cup. This was thoroughly irrigated and attention was turned back to the femur. A box osteotome was used to remove the lateral femoral neck cortex. A hand awl was placed down the canal and the canal was then reamed by hand with a 14 mm reamer. The Baeza trial was assembled and tapped into position. Trial reduction was then done, which provided excellent stability and appeared to recreate limb lengths with a +6.5 mm neck length. Level of the femoral stem and version of the stem were noted and the trial was removed. The hip was irrigated. The Baeza stem was then tapped into position with excellent fixation. A trial reduction was again done with a 3 mm and a +6 mm neck length and the +6 mm 6.5 mm neck length was chosen. This allowed full extension, appeared to recreate even limb lengths, and was stable with flexion, internal rotation, and adduction. It was then irrigated. The capsule was then closed with #2 Ethibond. The short external rotators were reattached to the greater trochanter with #2 Ethibond. The IT band was then closed in a running locking fashion. The skin was closed with 2-0 Vicryl and a running 3-0 Monocryl. Steri-Strips were applied. Sterile dressing was then placed. The patient tolerated the procedure very well. There were no complications. She was taken from the operating room in stable condition. Juvencio Lares MD /[id number]
== END 2019-10-12 13:30 | disposition home health service (06) | DRG 470 ==
LOC: EDSTATUS 07:30 → UNDOADMIN 08:13 → JP.MS 08:13 → JP.SDS 08:13 → JP.MS 14:30
PROVIDERS: ADMIT Specialist; ATTEND Specialist
PROC: 0SRB01A Replacement of Left Hip Joint with Metal Synthetic Substitute, Uncemented, Open Approach (ICD-10-PCS; principal; 2019-10-09)
DX: M16.0 Bilateral primary osteoarthritis of hip (principal); K21.9 Gastro-esophageal reflux disease without esophagitis; M21.372 Foot drop, left foot; Z96.641 Presence of right artificial hip joint; Z90.710 Acquired absence of both cervix and uterus; Z88.0 Allergy status to penicillin; Z88.8 Allergy status to other drugs, medicaments and biological substances; Z87.891 Personal history of nicotine dependence
CPT/HCPCS: 36415; 72170; 72170-26; 80053; 85025; 85027; 97110-GP; 97116-GP; 97162-GP; 97165-GO; 97530-GP; A9270-GY; C1713; C1776; J0131; J1650; J1885; J2250; J2704; J3370; J7030; J7050; J7120